=== PATIENT | female | born 1940 | race Caucasian/White ===

== ENCOUNTER 2020-08-18 11:57 | Observation (INO) | payer OTHER ==
[~2020-08-18] VITALS: Ht 172.7 cm; Wt 88.0 kg
[2020-08-18 12:06] VITALS: BP 169/86
[2020-08-18] MEDS ORDERED: ASA81BEC PO (12:21)
[2020-08-18 12:41] LABS: ABSOLUTE EOSINOPHILS 0.3 thou/uL (0.0-0.7); ABSOLUTE LYMPHOCYTES 1.7 thou/uL (0.8-5.3); ABSOLUTE MONOCYTES 0.5 thou/uL (0.0-1.2); ABSOLUTE NEUTROPHILS 3.1 thou/uL (1.6-8.1); BASOPHILS 0.7 %; EOSINOPHILS 5.1 %; HEMATOCRIT 38.5 % (37.0-47.0); HEMOGLOBIN 13.1 gm/dL (12.0-15.0); LYMPHOCYTES 30.3 %; MCH 29.9 pg (26.0-34.0); MCV 87.9 fL (80.0-100.0); MONOCYTES 8.3 %; MPV 8.5 fl. (7.2-11.1); NUCLEATED RBCS 0 /100WBC; PLATELET COUNT* 162 thou/uL (150-400); POLYS 55.6 %; RBC 4.38 mil/uL (4.20-5.00); RDW-CV 13.6 % (10.5-14.5); WBC 5.5 thou/uL (4.0-11.0)
[2020-08-18 12:52] LABS: CALCIUM 8.6 mg/dL (8.5-10.1); POTASSIUM 3.8 mmol/L (3.5-5.1)
[2020-08-18 12:53] LABS: APTT 24.4 Seconds (25.0-31.3); PROTIME 10.2 Seconds (9.20-11.50)
[2020-08-18] MEDS ORDERED: LIPITOR40 MG PO (12:55)
[2020-08-18] MEDS ORDERED: CALCIUM + VITA1 EACH PO (12:56)
[2020-08-18] MEDS ORDERED: PROBIOTIC1 EAC7 PO (12:56)
[2020-08-18] MEDS ORDERED: FISH OIL 1,001000 M2 PO (12:57)
[2020-08-18 13:02] LABS: ALBUMIN 3.6 g/dL (3.4-5.0); MAGNESIUM 2.1 mg/dL (1.8-2.4); TOTAL BILIRUBIN 0.5 mg/dL (<0.1-1.0); TOTAL PROTEIN 7.2 g/dL (6.4-8.2)
[2020-08-18 14:29] LABS: URINE BILIRUBIN NEGATIVE (Negative); URINE BLOOD NEGATIVE (Negative); URINE CLARITY CLEAR; URINE COLOR YELLOW; URINE GLUCOSE-RANDOM NEGATIVE (Negative); URINE KETONES NEGATIVE (Negative); URINE LEUKOCYTES-REFLEX 1+ (Negative); URINE NITRITE-REFLEX NEGATIVE (Negative); URINE PROTEIN NEGATIVE (Negative); URINE UROBILINOGEN 0.2 E.U./dl (0.2-1.0)
[2020-08-18 14:55] LABS: BACTERIA-REFLEX None Seen /HPF (None Seen); CASTS None Seen /LPF (None Seen); CRYSTALS None Seen /LPF (None Seen); MUCUS 0-3 Light strn/LPF (None Seen); SQUAMOUS 0-3 Few /LPF (0-3); URINE RBC 0-2 Rare /HPF (0-2); URINE WBC-REFLEX None Seen /HPF (0-5)
--- NOTE | 2020-08-18 17:45 | EKG ---
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: ANTHONY : 1940 Requested By: Narda Hamilton Order Number: [id number] MD: Melquiades Beaulieu Measurements Intervals [place] Rate: 61 P: 23 IN: 238 QRS: -22 QRSD: 116 T: 2 QT: 427 QTc: 430 Interpretive Statements Sinus rhythm Frequent and consecutive premature atrial contractions prolonged IN interval Low voltage, precordial leads Borderline T abnormalities, inferior leads Borderline ST elevation, lateral leads No previous ECG available for comparison Electronically Signed On 08-18-2020 17:45:43 CDT by Melquiades Beaulieu [email or web address] <ELECTRONICALLY SIGNED> By: Melquiades Beaulieu MD, FACC 08/18/20 1745 1205 1205 Melquiades Beaulieu MD, FACC /EPI
[2020-08-18 18:17] VITALS: BP 122/77
[2020-08-18 20:00] VITALS: BP 120/78
[2020-08-18 23:40] VITALS: BP 85/53
[2020-08-19 04:07] VITALS: BP 90/64
[2020-08-19 05:21] LABS: HEMATOCRIT 34.5 % (37.0-47.0); HEMOGLOBIN 11.9 gm/dL (12.0-15.0); MCHC 34.4 g/dL (28.0-37.0); MCV 87.1 fL (80.0-100.0); MPV 8.7 fl. (7.2-11.1); RBC 3.96 mil/uL (4.20-5.00); RDW-CV 13.7 % (10.5-14.5); WBC 4.1 thou/uL (4.0-11.0)
[2020-08-19 05:27] LABS: CALCIUM 7.9 mg/dL (8.5-10.1); CREATININE 0.8 mg/dL (0.6-1.3); POTASSIUM 3.8 mmol/L (3.5-5.1)
[2020-08-19 08:29] VITALS: BP 131/63
[2020-08-19 11:26] VITALS: BP 131/63
[2020-08-19 12:02] VITALS: BP 109/64
--- NOTE | 2020-08-19 12:32 | EKG ---
[place] [address] ELECTROCARDIOGRAM REPORT Name: RAS MARTEL [id number] Admission: 08/18/20 Attend Phys: Nicholas Arrieta Discharge: Date of : 40 Date of Service: 08/18/202005 Report #: [id number] THIS REPORT FOR: //name// [facility] Test Date: 2020-08-18 Test Time: 20:06:22 Pat Name: RAS MARTEL Department: Room: [address] Gender: F Rn Ed: YOHANA : 1940 Requested By: Nicholas Arrieta Order Number: [id number] Reading MD: Angel Lucio Measurements Intervals [place] Rate: 67 P: 35 CO: 243 QRS: -1 QRSD: 90 T: 35 QT: 414 QTc: 437 Interpretive Statements Sinus rhythm with occasional and consecutive late occurring PACs Ventricular premature complex Prolonged CO interval Low voltage, precordial leads Compared to ECG 08/18/2020 12:05:48 Ventricular premature complex(es) now present Atrial premature complex(es) persist Electronically Signed On 08-19-2020 12:31:56 CDT by Angel Lucio [email or web address] <ELECTRONICALLY SIGNED> By: Angel Lucio MD, [facility] 08/19/20 1231 05 05 Angel Lucio MD, [facility] /EPI
--- NOTE | 2020-08-19 12:38 | EKG ---
[place] [address] ELECTROCARDIOGRAM REPORT Name: RAS MARTEL Room: [address]#: [id number] Admission: 08/18/20 Attend Phys: Nicholas Arrieta Discharge: Date of : 40 Date of Service: 08/19/20 0808 Report #: [id number] THIS REPORT FOR: //name// [facility] Test Date: 2020-08-19 Test Time: 08:08:21 Pat Name: RAS MARTEL Department: Room: [facility] Gender: F Outreach Consultant: : 1940 Requested By: Nicholas Arrieta Order Number: [id number] Reading MD: Angel Lucio Measurements Intervals [place] Rate: 67 P: 32 MT: 222 QRS: -16 QRSD: 93 T: 17 QT: 469 QTc: 495 Interpretive Statements Sinus rhythm with PACs which are times consecutive Prolonged MT interval Borderline left axis deviation Low voltage, precordial leads Borderline T abnormalities, anterior leads Borderline prolonged QT interval Compared to ECG 08/18/2020 12:05:48 ST (T wave) deviation no longer present T-wave abnormality still present Electronically Signed On 08-19-2020 12:38:35 CDT by Angel Lucio [email or web address] <ELECTRONICALLY SIGNED> By: Angel Lucio MD, [facility] 08/19/20 1238 0808 Angel Lucio MD, [facility] /EPI
== END 2020-08-19 14:37 | disposition home or self-care (01) ==
LOC: M.ERS 11:57 → M.TBA-ER 15:14 → M.2W 15:14
PROVIDERS: Nurse Practitioner Family; ADMIT Internal Medicine; ATTEND Internal Medicine
DX: R07.89 Other chest pain (principal); Z20.822 Contact with and (suspected) exposure to COVID-19; I16.0 Hypertensive urgency; H53.8 Other visual disturbances; E78.5 Hyperlipidemia, unspecified; R42 Dizziness and giddiness; Z88.0 Allergy status to penicillin; Z95.1 Presence of aortocoronary bypass graft; Z79.82 Long term (current) use of aspirin; Z79.899 Other long term (current) drug therapy